=== PATIENT | male | born 1985 | race Caucasian/White ===

== ENCOUNTER 2018-11-04 01:03 | Emergency (ER) | payer BC, OTHER ==
[~2018-11-04] VITALS: Ht 188 cm; Wt 104.3 kg
--- NOTE | 2018-11-04 01:15 | NUR ---
ED Nurse Note: Patient walk in c/o unable to urinate. Patient reports sharp left flank pain /10. Patient reports pain starting 1 hour ago. AO4. NAD. VSS. Attached to monitor. ERMD at bedside.
--- NOTE | 2018-11-04 01:27 | Emergency Room Report ---
History of Present Illness General Chief Complaint: Male Urogenital Problems Source: Patient Present Illness HPI Is a 32-year-old male with no past medical history. He presents with chief complaint of left flank pain and unable to urinate. Onset for last couple hours. Pain radiating to his groin. Pain is sharp in nature. Nothing made it better. Nothing made it worse. No fever chills. [place] nauseous but no vomiting. No diarrhea. Pain is 9 out of 10. Allergies: Coded Allergies: No Known Allergies (Unverified , 11/04/18) Patient History Past Medical History: see triage record, old chart reviewed Past Surgical History: none Pertinent Family History: none Social History: Denies: smoking Immunizations: other Reviewed Nursing Documentation: PMH: Agreed; PSxH: Agreed Nursing Documentation-PMH Past Medical History: No History, Except For Hx Neurological Problems: Yes - anxiety Review of Systems Eye: Denies: eye pain, blurred vision ENT: Denies: ear pain, nose congestion, throat swelling Respiratory: Denies: cough, shortness of breath Cardiovascular: Denies: chest pain, palpitations Gastrointestinal: Denies: abdominal pain, diarrhea, nausea, vomiting Genitourinary: Reports: retention Musculoskeletal: Reports: back pain; Denies: joint pain Skin: Denies: rash Neurological: Denies: headache, numbness Endocrine: Denies: increased thirst, increased urine Hematologic/Lymphatic: Denies: easy bruising All Other Systems: negative except mentioned in HPI Physical Exam Vital Signs Date Time Temp Pulse Resp B/P (MAP) Pulse Ox O2 Delivery O2 Flow Rate FiO2 11/04/18 01:13 98.1 90 16 129/78 98 Room Air vitals normal Sp02 EP Interpretation: reviewed, normal General Appearance: well appearing, no apparent distress, alert Head: normocephalic, atraumatic Eyes: bilateral eye PERRL, bilateral eye EOMI ENT: hearing grossly normal, normal pharynx Neck: full range of motion, supple, no meningismus Respiratory: chest non-tender, lungs clear, normal breath sounds Cardiovascular #1: regular rate, rhythm, no murmur Gastrointestinal: normal bowel sounds, non tender, no mass, no organomegaly, no bruit, non-distended Musculoskeletal: back normal, gait/station normal, normal range of motion Psychiatric: mood/affect normal Skin: warm/dry Medical Decision Making Diagnostic Impression: Primary Impression: Renal colic on left side Additional Impression: Ureteral calculus, left ER Course Patient presents with renal colic. Right before he went down to CT scan, his pain resolved. This indicates that he passed a small kidney stone. Is confirmed by CT scan. No evidence any obstruction. We'll discharge home. CT/MRI/US Diagnostic Results CT/MRI/US Diagnostic Results : Imaging Test Ordered: CT abdomen and pelvis Impression Read by radiologist. 2-3 mm stone in the bladder. Mild [place] left kidney. Last Vital Signs Date Time Temp Pulse Resp B/P (MAP) Pulse Ox O2 Delivery O2 Flow Rate FiO2 11/04/18 01:13 98.1 90 16 129/78 98 Room Air Status: improved Disposition: HOME, SELF-CARE Condition: Stable Scripts Ibuprofen* (MOTRIN*) 600 Mg Tablet 600 MG ORAL THREE TIMES A DAY, #30 TAB 0 Refills Prov: Brad Benavidez MD 11/04/18 Additional Instructions: Increase fluids. Avoid carbonated drinks. Follow-up with your doctor in 7 days. Return if worse. Brad Benavidez MD Nov 04, 2018 01:27
[2018-11-04] MEDS ORDERED: Ketorolac 30mg Inj IV ONE (01:30)
[2018-11-04] MEDS: Morphine Sulfate 4mg/ml Inj (IV/IM USE ONLY) IVP ONE ×2 (01:30→01:39)
--- NOTE | 2018-11-04 01:30 | NUR ---
ED Nurse Note: IV access established. Blood collected; sent down to lab.
[2018-11-04 01:51] LABS: BASOPHILS % (AUTO) 1.1 % (0.0-2.0); EOSINOPHILS % (AUTO) 1.5 % (0.0-3.0); HEMATOCRIT 47.5 % (42.0-52.0); HEMOGLOBIN 16.4 G/DL (14.2-18.0); LYMPHOCYTES % (AUTO) 20.1 % (20.0-45.0); MEAN CORPUSCULAR VOLUME 91 FL (80-99); MONOCYTES % (AUTO) 6.5 % (1.0-10.0); NEUTROPHILS % (AUTO) 70.9 % (45.0-75.0); PLATELET COUNT 209 K/UL (150-450); RED BLOOD COUNT 5.21 M/UL (4.70-6.10); RED CELL DISTRIBUTION WIDTH 11.5 % (11.6-14.8); WHITE BLOOD COUNT 9.1 K/UL (4.8-10.8)
--- NOTE | 2018-11-04 02:03 | Diagnostic Imaging Report ---
EXAM: CT Abdomen and Pelvis Without Intravenous Contrast CLINICAL HISTORY: ABD PAIN TECHNIQUE: Axial computed tomography images of the abdomen and pelvis without intravenous contrast. CTDI is 23.36 mGy and DLP is 1279.1 mGy-cm. One or more of the following dose reduction techniques were used: automated exposure control, adjustment of the mA and/or kV according to patient size, use of iterative reconstruction technique. COMPARISON: No relevant prior studies available. FINDINGS: Small hiatal hernia. Calcified nodule left lower lobe. Nonobstructive left renal stone. Other more questionable faint nonobstructive renal calcifications. There is no ureteral calculus though there is a stone measuring approximately 2-3 mm in size in the midline dependent bladder which suspect has recently passed from the left kidney given increased density of the left uroepithelium and mild distention of portions of left ureter with adjacent stranding. No significant left hydronephrosis. No bowel obstruction. No appendicitis. Hepatic steatosis. Borderline splenomegaly. Spleen about 13 cm craniocaudal. IMPRESSION: Stone measuring approximately 2-3 mm in size in the midline dependent bladder which suspect has recently passed from the left kidney given increased density of the left uroepithelium and mild distention of portions of left ureter with adjacent stranding. No significant left hydronephrosis. Nonobstructive left renal stone. Other more questionable faint nonobstructive renal calcifications. Incidental findings, as discussed above.
[2018-11-04 02:15] LABS: ANION GAP 11 mmol/L (5-15); BLOOD UREA NITROGEN 17 mg/dL (7-18); CALCIUM 8.9 MG/DL (8.5-10.1); CARBON DIOXIDE 26 MMOL/L (21-32); CHLORIDE 107 MMOL/L (98-107); CREATININE 1.2 MG/DL (0.55-1.30); POTASSIUM 3.9 MMOL/L (3.5-5.1); SODIUM 144 MMOL/L (136-145)
[2018-11-04] MEDS ORDERED: IBUPROFEN600 MG ORAL (02:27)
--- NOTE | 2018-11-04 02:45 | NUR ---
ED Nurse Note: Urine collected; sent down to lab.
--- NOTE | 2018-11-04 02:50 | NUR ---
ED Nurse Note: Patient cleared for discharge per ERMD. AO4 NAD. VSS. Patient given prescriptions and discharge instructions; verbalized understanding. IV & ID band removed. Patient ambulated steady with all personal belongings.
[2018-11-04 02:54] VITALS: BP 129/78
[2018-11-04 02:56] LABS: APPEARANCE,URINE CLEAR; BILIRUBIN, URINE NEGATIVE (NEGATIVE); COLOR,URINE PALE YELLOW; GLUCOSE, URINE (UA) NEGATIVE (NEGATIVE); KETONES,URINE NEGATIVE (NEGATIVE); LEUKOCYTE ESTERASE ,URINE NEGATIVE (NEGATIVE); NITRITE,URINE NEGATIVE (NEGATIVE); PH,URINE 5 (4.5-8.0); PROTEIN,URINE NEGATIVE (NEGATIVE); UROBILINOGEN,URINE NORMAL MG/DL (0.0-1.0)
== END 2018-11-04 02:50 | disposition home or self-care (01) ==
LOC: EMR 01:28
DX: N20.2 Calculus of kidney with calculus of ureter (principal); N21.0 Calculus in bladder
CPT/HCPCS: 36415; 74176; 80048; 81003; 85025; 96361; 96374; 96375; 99284; J1885; J2405